=== PATIENT | female | born 1955 | race Caucasian/White ===

== ENCOUNTER → 2017-12-24 | Outpatient (CLI) | payer MEDICARE ==
[~2017-12-24] MED LIST: ALBU18HF INH; ALLO300T PO; BUPR200T PO; DIVA-61 PO; OMNIPAQUE 350 MG/ML, 100ML BOTTLE ONE; OXYC-295 PO; OXYC-307 PO; TIOT18CA INH; TRAZ-136 PO
[2017-12-24 14:32] LABS: CREATININE 0.71 mg/dL (0.55-1.02)
== END | disposition home or self-care (01) ==
LOC: RAD 13:59
PROVIDERS: ATTEND Otolaryngology
DX: K13.79 Other lesions of oral mucosa (principal); H92.02 Otalgia, left ear; Z85.819 Personal history of malignant neoplasm of unspecified site of lip, oral cavity, and pharynx
CPT/HCPCS: 36415; 70491; 82565; Q9967

== ENCOUNTER 2019-03-25 13:45 | Outpatient (CLI) | payer MEDICARE ==
[~2019-03-25 13:45] MED LIST changes: -OMNIPAQUE 350 MG/ML, 100ML BOTTLE ONE; -TRAZ-136 PO; +TRAZ50TA66 PO
== END 2019-03-25 23:59 | disposition home or self-care (01) ==
LOC: CFH 13:45
PROVIDERS: ATTEND Nurse Practitioner
DX: S42.212A Unspecified displaced fracture of surgical neck of left humerus, initial encounter for closed fracture (principal); W19.XXXA Unspecified fall, initial encounter; Y93.89 Activity, other specified; Y92.89 Other specified places as the place of occurrence of the external cause; Y99.8 Other external cause status